=== PATIENT | female | born 1980 | race Caucasian/White ===

== ENCOUNTER 2018-11-17 10:31 | Emergency (ER) | payer OTHER ==
[~2018-11-17] VITALS: Ht 157.5 cm; Wt 89.0 kg
--- NOTE | 2018-11-17 11:39 | NUR ---
PER KELLY SAUCEDO, [facility] IN [place], [place] [phone] BLOOD QUANTATAIVE [phone] ON 11/11/18
[2018-11-17 11:48] LABS: HEMATOCRIT 35.7 % (35.0-45.0); HEMOGLOBIN 12.3 g/dl (12.0-16.0); MEAN CORPUSCULAR HEMOGLOBIN 30.7 PG (27.0-31.0); MEAN CORPUSCULAR HGB CONC 34.5 g/dL (33.0-36.5); MEAN CORPUSCULAR VOLUME 88.9 FL (78-98); MEAN PLATELET VOLUME 7.4 FL (7.4-10.4); PLATELET COUNT 299 X10'3 (140-440); RED BLOOD COUNT 4.01 X10'6 (4.20-5.60); RED CELL DISTRIBUTION WIDTH 13.9 % (11.5-14.5); WHITE BLOOD COUNT 6.5 X10'3 (4.5-11.0)
--- NOTE | 2018-11-17 13:48 | NUR ---
TO ULTRASOUND VIA WC
--- NOTE | 2018-11-17 14:17 | NUR ---
BACK FROM ULTRASOUND
[2018-11-17 15:11] VITALS: BP 130/71
--- NOTE | 2018-11-17 15:37 | NUR ---
PHONE REPORT TO JOHN RIVERAAPPRENTICE FUNERAL DIRECTOR AT [facility] [phone]. SECOND PHONE CALL, FIRST CALL SPOKE BRIEFLY TO KENN SLATER AND CALL DISCONNECTED
--- NOTE | 2018-11-17 15:38 | NUR ---
SHARI AWARE AND [facility]
== END 2018-11-17 15:56 | disposition short-term general hospital (02) ==
LOC: ER 10:32
DX: O03.9 Complete or unspecified spontaneous abortion without complication (principal); O24.111 Pre-existing type 2 diabetes mellitus, in pregnancy, first trimester; E11.9 Type 2 diabetes mellitus without complications; O10.911 Unspecified pre-existing hypertension complicating pregnancy, first trimester; Z3A.01 Less than 8 weeks gestation of pregnancy; Z91.018 Allergy to other foods; Z56.0 Unemployment, unspecified
CPT/HCPCS: 36415; 76817; 82948; 84702; 85027; 86900; 86901; 99285